=== PATIENT | female | born 1960 | race Two or more races ===

== ENCOUNTER 2018-05-29 16:08 | Emergency (ER) | payer OTHER ==
[~2018-05-29] VITALS: Ht 154.9 cm; Wt 71.3 kg
--- NOTE | 2018-05-29 16:16 | NUR ---
Pt to room with triage tech.
--- NOTE | 2018-05-29 16:42 | NUR ---
Dr. Carson at bedside to evaluate pt. Pt changing into gown for XRs.
--- NOTE | 2018-05-29 16:55 | NUR ---
PT TO IMAGING, WITH TECH, VIA [employer].
--- NOTE | 2018-05-29 17:10 | NUR ---
Pt back to room from imaging.
[2018-05-29 18:01] VITALS: BP 142/67
--- NOTE | 2018-05-29 18:02 | NUR ---
Patient/Caregiver given discharge instructions and they have confirmed that they understand the instructions. Patient ambulatory with steady gait.
== END 2018-05-29 18:03 | disposition home or self-care (01) ==
LOC: ED 17:29
DX: S16.1XXA Strain of muscle, fascia and tendon at neck level, initial encounter (principal); S46.912A Strain of unspecified muscle, fascia and tendon at shoulder and upper arm level, left arm, initial encounter; W20.8XXA Other cause of strike by thrown, projected or falling object, initial encounter; Y93.89 Activity, other specified; Y92.69 Other specified industrial and construction area as the place of occurrence of the external cause; Y99.8 Other external cause status
CPT/HCPCS: 72050; 99283